=== PATIENT | female | born 1995 | race Two or more races ===

== ENCOUNTER 2021-01-18 13:07 | Observation (INO) | payer MEDICAID ==
[2021-01-18] MEDS ORDERED: PREN27TA7 OR (14:55)
== END 2021-01-18 15:27 | disposition home or self-care (01) ==
LOC: LDRP 13:07
PROVIDERS: ADMIT Obstetrics & Gynecology; ATTEND Obstetrics & Gynecology
DX: O48.0 Post-term pregnancy (principal); Z3A.40 40 weeks gestation of pregnancy
CPT/HCPCS: 59025; 76818; 81002; G0378

== ENCOUNTER 2021-01-19 09:35 | Inpatient (IN) | payer MEDICAID ==
[~2021-01-19] VITALS: Ht 154.9 cm; Wt 81.6 kg
[~2021-01-19 09:35] MED LIST: PREN27TA7 OR
[2021-01-19] MEDS ORDERED: DERMOPLAST 60ML BOTTLE TOP PRN (10:15)
[2021-01-19] MEDS ORDERED: WITCH HAZEL-GLYCERIN PAD TOP PRN (10:15)
[2021-01-19] MEDS ORDERED: LIDOCAINE 2%HCL (LOCAL ANESTH.) INJ 20ML MDV IJ PRN (10:15)
[2021-01-19] MEDS ORDERED: PROMETHAZINE HCL 25 MG/ML 1ML IV PRN (10:15)
[2021-01-19] MEDS ORDERED: PHISODERM TOP SOLN 240ML BTL TOP PRN (10:15)
[2021-01-19] MEDS ORDERED: BUTORPHANOL TARTRATE 2 MG/1 ML VIAL IV PRN ×2 (10:15)
[2021-01-19 10:30] LABS: Urine WBC None Seen /hpf (0 - 5)
[2021-01-19] MEDS: LACTATED RINGER'S 1,000 ML IV SCH ×5 (10:30→22:00)
[2021-01-19 10:41] LABS: Urine Bacteria NONE SEEN /hpf (None Seen); Urine Blood TRACE /uL (Negative); Urine Mucus FEW (None Seen); Urine Specific Gravity 1.024 (1.001-1.035)
[2021-01-19 10:43] LABS: Basophils # (auto) 0 10 ^3/uL (0-0.2); Basophils % (auto) 0.4 % (0.0-2.0); Eosinophils # (auto) 0.1 10 ^3/uL (0-0.8); Eosinophils % (auto) 0.4 % (0.0-7.0); Hematocrit 36.3 % (36.0-46.0); Hemoglobin 11.9 g/dL (12.2-16.2); Lymphocytes # (auto) 1.1 10 ^3/uL (0.4-5.4); Lymphocytes % (auto) 9.5 % (10.0-50.0); Mean Corpuscular Hemoglobin 29.9 pg (28.0-32.0); Mean Corpuscular Hgb Conc. 32.9 g/dL (32.0-36.0); Mean Corpuscular Volume 90.7 fL (80.0-100.0); Monocytes # (auto) 0.7 10 ^3/uL (0-1.3); Monocytes % (auto) 5.8 % (0.0-12.0); Neutrophils % (auto) 83.9 % (37.0-80.0); Nucleated Red Blood Cells % 0.1 %; Red Cell Distribution Width 15.6 % (11.8-14.3); White Blood Cell 11.9 10^3/uL (4.4-10.8)
[2021-01-19 10:53] LABS: INR 0.94 (0.9-1.15); Partial Thromboplastin Time 25.1 sec (23.0-31.2)
[2021-01-19] MEDS ORDERED: LACT. RINGERS/OXYTOCIN 20UNITS 500 ML IV ONE (11:00)
[2021-01-19 11:01] LABS: Albumin 2.7 g/dL (3.4-5.0); Calcium 8.6 mg/dL (8.5-10.1); Potassium 3.7 mmol/L (3.5-5.1)
[2021-01-19 11:05] LABS: BUN/Creatinine Ratio 20.5; Bilirubin, Total 0.4 mg/dL (0.2-1.0)
[2021-01-19 11:05] LABS: Alcohol, Urine < 3.0 mg/dL (0-10); Amphetamine Screen, Urine NEGATIVE (NEGATIVE); Barbiturate Scree,Urine NEGATIVE (NEGATIVE); Benzodiazephine Screen, Urine NEGATIVE (NEGATIVE); Cannabinoid Screen, Urine NEGATIVE (NEGATIVE); Cocaine Screen, Urine NEGATIVE (NEGATIVE); Opiate Scree,Urine NEGATIVE (NEGATIVE); Phencyclidine Screen, Urine NEGATIVE (NEGATIVE)
[2021-01-19] MEDS ORDERED: ePHEDrine SULFATE 50 MG/ML AMP IV ONE ×2 (12:30→13:00)
[2021-01-19] MEDS ORDERED: LIDOCAINE HCL 2 %PF INJ 10ML AMP IJ ONE ×3 (12:30→13:15)
[2021-01-19] MEDS ORDERED: LACTATED RINGER'S 1,000 ML IV ONE ×2 (12:30→13:00)
[2021-01-19] MEDS ORDERED: ROPIVACAINE HCL 200 ML EPI SCH ×2 (12:30→13:00)
[2021-01-19] MEDS ORDERED: fentaNYL CITRATE 100 MCG/2 ML VL ONE (12:38)
[2021-01-19] MEDS ORDERED: fentaNYL CITRATE 100 MCG/2 ML VL IV ONE (13:00)
[2021-01-19] MEDS ORDERED: NALOXONE HCL 0.4 MG/ML VIAL IV ONE (13:00)
[2021-01-19] MEDS ORDERED: fentaNYL CITRATE 100 MCG/2 ML VL EPI ONE (13:05)
[2021-01-19] MEDS ORDERED: LACT. RINGERS/OXYTOCIN 20UNITS 1,000 ML IV SCH (13:30)
[2021-01-19] MEDS ORDERED: TERBUTALINE SULFATE 1 MG/ML 1ML VIAL SC ONE (13:30)
[2021-01-19] MEDS ORDERED: IBUPROFEN 600 MG TAB PO PRN (15:00)
[2021-01-19 17:00] VITALS: BP 114/56
[2021-01-19 18:36] VITALS: BP 107/59
[2021-01-19 23:07] VITALS: BP 109/67
[2021-01-20 02:50] VITALS: BP 110/27
[2021-01-20 07:00] VITALS: BP 108/61
[2021-01-20 07:06] LABS: RPR Non Reactive (Non Reactive)
[2021-01-20 11:00] VITALS: BP 106/65
[2021-01-20 15:00] VITALS: BP 110/66
== END 2021-01-20 15:49 | disposition home or self-care (01) | DRG 560 ==
LOC: LDRP 09:35 → OBSVTOIN 09:58
PROVIDERS: ADMIT Specialist; ATTEND Specialist
PROC: 10E0XZZ Delivery of Products of Conception, External Approach (ICD-10-PCS; principal; 2021-01-19)
PROC: 3E0R3BZ Introduction of Anesthetic Agent into Spinal Canal, Percutaneous Approach (ICD-10-PCS; 2021-01-19)
PROC: 00HU33Z Insertion of Infusion Device into Spinal Canal, Percutaneous Approach (ICD-10-PCS; 2021-01-19)
PROC: 10907ZC Drainage of Amniotic Fluid, Therapeutic from Products of Conception, Via Natural or Artificial Opening (ICD-10-PCS; 2021-01-19)
DX: O77.0 Labor and delivery complicated by meconium in amniotic fluid (principal); Z20.822 Contact with and (suspected) exposure to COVID-19; Z37.0 Single live birth; Z3A.40 40 weeks gestation of pregnancy
CPT/HCPCS: 36415; 59025; 59409; 62282; 80053; 80307; 81001; 81002; 85025; 85610; 85730; 86592; 86850; 86900; 86901; 87426; 94760; 96360; 96361; 96365; 96366; G0378; J2590